=== PATIENT | female | born 1945 | race Native Hawaiian/Other Pacific Islander ===

== ENCOUNTER 2016-11-21 13:25 | Emergency (ER) | payer OTHER ==
[~2016-11-21] VITALS: Ht 172.7 cm; Wt 110.2 kg
[~2016-11-21 13:25] MED LIST: ACET7.5T70 PO; ACID CONTROL150 MG PO; ALBUTEROL0.083 % IN; AMITRIPTYLIN50 MG PO; AMLO5TAB PO; ARICEPT ODT10 MG PO; CLON0.5T36 PO; ESCITALOPRAM20 MG PO; FURO40TA93 PO; HYDR25CA25 PO; KLOR-CON M2020 MEQ PO; LAMICTAL25 MG PO; LAMOTRIGINE25 MG PO; LEVO0.08 PO; LISI20TA11 PO; MELOXICAM15 MG PO; METF500T PO; RISP1TAB PO; TRAM50TA PO
[2016-11-21 13:42] VITALS: BP 128/68; TEMP 98.2
== END 2016-11-21 15:24 | disposition home or self-care (01) ==
LOC: ED 13:25
DX: S52.591A Other fractures of lower end of right radius, initial encounter for closed fracture (principal); S52.614A Nondisplaced fracture of right ulna styloid process, initial encounter for closed fracture; S72.091A Other fracture of head and neck of right femur, initial encounter for closed fracture; W01.0XXA Fall on same level from slipping, tripping and stumbling without subsequent striking against object, initial encounter; Y92.098 Other place in other non-institutional residence as the place of occurrence of the external cause
CPT/HCPCS: 99283; L3908

== ENCOUNTER 2016-12-01 13:02 | Outpatient (CLI) | payer OTHER | END 2016-12-02 02:01 | disposition home or self-care (01) | LOC: RAD 13:02 | DX: M25.531 Pain in right wrist (principal) ==

== ENCOUNTER 2016-12-29 13:22 | Outpatient (CLI) | payer OTHER | END 2016-12-29 19:29 | disposition home or self-care (01) | LOC: RAD 13:22 | DX: S52.511D Displaced fracture of right radial styloid process, subsequent encounter for closed fracture with routine healing (principal) ==

== ENCOUNTER 2017-06-29 15:46 | Outpatient (CLI) | payer OTHER | END 2017-06-29 19:07 | disposition home or self-care (01) | LOC: LAB 15:46 | DX: R19.7 Diarrhea, unspecified (principal) | CPT/HCPCS: 87015; 87045; 87899 ==

== ENCOUNTER 2017-07-06 23:20 | Outpatient (CLI) | payer OTHER | END 2017-07-06 23:59 | disposition home or self-care (01) | LOC: LAB 23:20 | DX: R19.7 Diarrhea, unspecified (principal) | CPT/HCPCS: 87205; 87324; 87328; 87329; 87449 ==

== ENCOUNTER 2017-07-24 17:09 | Outpatient (CLI) | payer OTHER ==
[2017-07-24] MEDS ORDERED: LEVO-T100 MCG PO (22:44)
[2017-07-24] MEDS ORDERED: METFORMIN HCL500 M1 PO (22:46)
[2017-07-24] MEDS ORDERED: IMODIUM A-D2 MG PO (22:49)
[2017-07-24] MEDS ORDERED: PROTONIX20 MG PO (22:50)
[2017-07-24] MEDS ORDERED: OXYB5TAB56 PO (22:50)
[2017-07-24] MEDS ORDERED: EPIPEN 2-PAK0.3 MG IJ (22:51)
[2017-07-24] MEDS ORDERED: ASPIRIN 8181 MG PO (22:51)
== END 2017-07-24 17:17 | disposition short-term general hospital (02) ==
LOC: AMB 17:09
DX: I95.89 Other hypotension (principal); R53.1 Weakness
CPT/HCPCS: A0425; A0427

== ENCOUNTER 2017-07-24 17:20 | Inpatient (IN) | payer OTHER ==
[~2017-07-24] VITALS: Ht 172.7 cm; Wt 103.7 kg
[2017-07-24 17:25] VITALS: BP 78/36; TEMP 95.3
[2017-07-24 17:56] LABS: PLATELET COUNT 167 K/uL (152-353)
[2017-07-24 17:57] LABS: POTASSIUM 5.2 mmol/L (3.6-5.2)
[2017-07-24 18:00] VITALS: BP 92/39
[2017-07-24 18:20] VITALS: BP 97/49; TEMP 96.5
[2017-07-24] MEDS ORDERED: LEVO-T100 MCG PO (22:44)
[2017-07-24] MEDS ORDERED: METFORMIN HCL500 M1 PO (22:46)
[2017-07-24] MEDS ORDERED: IMODIUM A-D2 MG PO (22:49)
[2017-07-24] MEDS ORDERED: OXYB5TAB56 PO (22:50)
[2017-07-24] MEDS ORDERED: PROTONIX20 MG PO (22:50)
[2017-07-24] MEDS ORDERED: EPIPEN 2-PAK0.3 MG IJ (22:51)
[2017-07-24] MEDS ORDERED: ASPIRIN 8181 MG PO (22:51)
[2017-07-25] VITALS (7 sets, daily range): BP systolic 96–117; BP diastolic 39–48; TEMP 97.4–98.7; Ht 172.7 cm; Wt 103.7 kg
--- NOTE | 2017-07-25 02:58 | NUR ---
07/24/17 2210 PT TO ROOM 1109 DX UTI HYPOTENSION,DEHYDRATION,ACUTE RENAL INSUFFICENCY.PT ORIENTED TO ROOM CALL LIGHT WITHIN REACH.VITAL SIGNS OBTAINED.CC 07/24/17 2320 ER KELI NOTIFIED OF PT BLOOD SUGAR 91 ORDERED TO CALL IF LESS THAN 100.RECEIVED ORDER TO GIVE PT A DIET TO SEE IF SHE WILL EAT ANYTHING.CC 07/24/[address] MORE NOTIFIED OF BLOOD SUGAR IS 96 AFTER EATING SOME COOKIES AND MILK.NEW ORDER RECEIVED TO CHANGE IV FLUIDS TO D51/2NS AT 125.CONTINUE TO MONITOR BLOOD SUGAR.CC
[2017-07-25 06:18] LABS: POTASSIUM 5.1 mmol/L (3.6-5.2)
[2017-07-25 07:47] LABS: PLATELET COUNT 130 K/uL (152-353)
[2017-07-26] VITALS: BP 116/51; TEMP 98.6
[2017-07-26 04:00] VITALS: BP 122/56; TEMP 98.4
[2017-07-26 05:02] LABS: PLATELET COUNT 132 K/uL (152-353)
[2017-07-26 05:18] LABS: POTASSIUM 4.9 mmol/L (3.6-5.2)
[2017-07-26 08:08] VITALS: BP 125/58; TEMP 97.8
[2017-07-26 12:00] VITALS: BP 119/45; TEMP 98.5
[2017-07-26 16:00] VITALS: BP 108/46; TEMP 98.5
[2017-07-26 20:00] VITALS: BP 109/44; TEMP 98
--- NOTE | 2017-07-26 20:19 | NUR ---
07/26/17 190 FIRST UNIT BLOOD TRANSFUSION COMPLETED TOLERATED WELL FAMILY PRESENT AT BEDSIDE.CC 07/26/171954 SECOND UNIT PRBC'S STARTED WITHOUT DIFFICULTY.CC 07/26/172009 INCREASE INFUSION RATE TO 125ML .CC
--- NOTE | 2017-07-26 20:21 | NUR ---
07/26/17 2015 BLOOD SUGR 111.CC
--- NOTE | 2017-07-26 22:59 | NUR ---
07/26/17 2240 PT BLOOD INFUSION COMPLETED TOLERATED WELL.CC
[2017-07-27] VITALS: BP 111/49; TEMP 98.2
--- NOTE | 2017-07-27 00:18 | NUR ---
07/26/[address] ROSE NOTIFED OF HGB AND HCT AFTER SECOND UNIT OF PRBC'S INFUSED 9.5.CONTINUE WITH THE OTHER 2 UNITS OF PRBC'S ORDERED.CC 07/27/17 0010 THIRD UNIT BLOOD INFUSION STARTED WITHOUT DIFFICULTY NAD NOTED.CC
[2017-07-27 04:00] VITALS: BP 122/52; TEMP 97.8
--- NOTE | 2017-07-27 06:44 | NUR ---
07/27/17 0630 BLOOD INFUSION COMPLETED NO REACTION NOTED.CC
[2017-07-27 08:00] VITALS: BP 118/50; TEMP 98.2
--- NOTE | 2017-07-27 10:00 | NUR ---
ANAI TALLEY APPLIED TO PT AT THIS TIME.
[2017-07-27 12:00] VITALS: BP 123/52; TEMP 97.8
[2017-07-27 13:18] LABS: PLATELET COUNT 118 K/uL (152-353)
[2017-07-27 13:32] LABS: POTASSIUM 4.7 mmol/L (3.6-5.2)
--- NOTE | 2017-07-27 14:45 | NUR ---
BED BATH GIVEN. PT ABLE TO HELP WASH OFF. PT TOLERATED WELL. NO PROBLEMS NOTED.
[2017-07-27 16:00] VITALS: BP 129/45; TEMP 98
[2017-07-27 20:06] VITALS: BP 107/43; TEMP 98
[2017-07-28] VITALS: BP 108/50; TEMP 98.1
[2017-07-28 04:00] VITALS: BP 112/52; TEMP 98
[2017-07-28 05:08] LABS: POTASSIUM 4.5 mmol/L (3.6-5.2)
[2017-07-28 05:40] LABS: PLATELET COUNT 108 K/uL (152-353)
[2017-07-28 08:00] VITALS: BP 116/56; TEMP 98.6
--- NOTE | 2017-07-28 09:45 | NUR ---
HOSPITALIST STATES PT MAY BE ABLE TO GO HOME TODAY DEPENDING ON HOW WELL PT TOLERATES GETTING UP AND WALKING. PHYSICAL THERAPY HERE AT THIS TIME TO WORK WITH PT. NO PROBLEMS NOTED.
--- NOTE | 2017-07-28 11:15 | NUR ---
ARNULFO FORM PT STATED THAT PT AMBULATED DOWN CLARK AND BACK TWICE. PT TOLERATED OK BUT GOT A LITTLE SOB. HOSPITALIST NOTIFIED.
--- NOTE | 2017-07-28 11:26 | NUR ---
BLADDER TRAINING IN PROGRESS SO PT CAN BE D/C'D LATER TODAY.
[2017-07-28 12:00] VITALS: BP 118/44; TEMP 98.1
--- NOTE | 2017-07-28 16:19 | NUR ---
IV D/C'D. MONAHAN D/C'D. DISCHARGE INSTRUCTIONS GIVEN. PT BEING WHEELED OUT BY FAMILY AND NURSE AT THIS TIME. PT HAS NO QUESTIONS. NO PROBLEMS NOTED.
== END 2017-07-28 18:05 | disposition home or self-care (01) | DRG 690 ==
LOC: ED 17:20 → MED/SURG 20:10
PROVIDERS: ADMIT Emergency Medicine
PROC: 30233N1 Transfusion of Nonautologous Red Blood Cells into Peripheral Vein, Percutaneous Approach (ICD-10-PCS; principal; 2017-07-26)
PROC: 30233N1 Transfusion of Nonautologous Red Blood Cells into Peripheral Vein, Percutaneous Approach (ICD-10-PCS; 2017-07-27)
DX: N39.0 Urinary tract infection, site not specified (principal); N18.4 Chronic kidney disease, stage 4 (severe); G40.802 Other epilepsy, not intractable, without status epilepticus; B96.1 Klebsiella pneumoniae [K. pneumoniae] as the cause of diseases classified elsewhere; I95.89 Other hypotension; D64.89 Other specified anemias; E03.8 Other specified hypothyroidism; D69.6 Thrombocytopenia, unspecified; E88.09 Other disorders of plasma-protein metabolism, not elsewhere classified; E86.0 Dehydration; I12.9 Hypertensive chronic kidney disease with stage 1 through stage 4 chronic kidney disease, or unspecified chronic kidney disease
CPT/HCPCS: 36415; 36430; 80053; 81000; 82150; 82272; 82948; 83690; 83880; 85014; 85018; 85027; 85379; 86850; 86900; 86901; 86922; 87077; 87086; 87088; 87186; 93005; 96360; 96361; 99284; J1940; P9016

== ENCOUNTER 2017-08-16 18:27 | Outpatient (CLI) | payer OTHER ==
[~2017-08-16 18:27] MED LIST changes: +ASPIRIN 8181 MG PO; +EPIPEN 2-PAK0.3 MG IJ; +IMODIUM A-D2 MG PO; +LEVO-T100 MCG PO; +METFORMIN HCL500 M1 PO; +OXYB5TAB56 PO; +PROTONIX20 MG PO
== END 2017-08-16 18:31 | disposition short-term general hospital (02) ==
LOC: AMB 18:27
DX: R06.09 Other forms of dyspnea (principal); R51 Headache; R42 Dizziness and giddiness; R53.1 Weakness
CPT/HCPCS: A0425; A0427

== ENCOUNTER 2017-09-30 11:20 | Day surgery (SDC) | payer OTHER ==
[2017-09-30 11:58] LABS: PLATELET COUNT 146 K/uL (152-353)
[2017-09-30 12:04] LABS: POTASSIUM 4.9 mmol/L (3.6-5.2)
== END 2017-09-30 14:40 | disposition home or self-care (01) ==
LOC: OR 11:20
PROVIDERS: Internal Medicine Gastroenterology
PROC: 0DBE8ZZ Excision of Large Intestine, Via Natural or Artificial Opening Endoscopic (ICD-10-PCS; principal; 2017-09-30)
DX: K64.8 Other hemorrhoids (principal); R19.4 Change in bowel habit; R19.7 Diarrhea, unspecified; R10.30 Lower abdominal pain, unspecified
CPT/HCPCS: 80053; 85027; J2001; J2704; J3010; J3490

== ENCOUNTER 2018-10-08 11:49 | Outpatient (CLI) | payer OTHER ==
[2018-10-08 12:11] LABS: PLATELET COUNT 131 K/uL (152-353)
[2018-10-08 13:02] LABS: POTASSIUM 6.3 mmol/L (3.6-5.2)
== END 2018-10-08 23:24 | disposition home or self-care (01) ==
LOC: LABW 11:49
PROVIDERS: Family Medicine
DX: E11.9 Type 2 diabetes mellitus without complications (principal); I10 Essential (primary) hypertension; I63.9 Cerebral infarction, unspecified; M19.90 Unspecified osteoarthritis, unspecified site; E55.9 Vitamin D deficiency, unspecified; R32 Unspecified urinary incontinence
CPT/HCPCS: 36415; 80053; 80061; 82306; 83036; 83735; 84439; 84443; 84550; 85027

== ENCOUNTER 2018-10-08 12:17 | Emergency (ER) | payer OTHER ==
[~2018-10-08] VITALS: Ht 172.7 cm; Wt 113.4 kg
[2018-10-08 14:27] VITALS: BP 112/68; TEMP 98
== END 2018-10-08 14:30 | disposition home or self-care (01) ==
LOC: ED 12:17
DX: N39.0 Urinary tract infection, site not specified (principal)
CPT/HCPCS: 81000; 87077; 87086; 87088; 87186; 99282

== ENCOUNTER 2018-11-08 08:22 | Outpatient (CLI) | payer OTHER ==
[2018-11-08 08:51] LABS: PLATELET COUNT 150 K/uL (152-353)
[2018-11-08 09:24] LABS: POTASSIUM 4.3 mmol/L (3.6-5.2)
== END 2018-11-08 20:47 | disposition home or self-care (01) ==
LOC: LABW 08:22
PROVIDERS: Family Medicine
DX: R32 Unspecified urinary incontinence (principal); N18.4 Chronic kidney disease, stage 4 (severe); D64.9 Anemia, unspecified; K21.9 Gastro-esophageal reflux disease without esophagitis
CPT/HCPCS: 36415; 80053; 82607; 82728; 82746; 83540; 83550; 83735; 84550; 85027

== ENCOUNTER 2018-12-10 10:39 | Outpatient (CLI) | payer OTHER ==
[2018-12-10 11:36] LABS: POTASSIUM 4.5 mmol/L (3.6-5.2)
== END 2018-12-10 19:12 | disposition home or self-care (01) ==
LOC: LAB 10:39
PROVIDERS: Family Medicine
DX: N18.4 Chronic kidney disease, stage 4 (severe) (principal); K21.9 Gastro-esophageal reflux disease without esophagitis; R82.998 Other abnormal findings in urine
CPT/HCPCS: 80053; 81000; 83735; 87077; 87086; 87088; 87186

== ENCOUNTER 2018-12-14 17:51 | Inpatient (IN) | payer OTHER ==
[~2018-12-14] VITALS: Ht 172.7 cm; Wt 115.9 kg
[2018-12-14 18:39] VITALS: BP 187/50; TEMP 98.4; Ht 172.7 cm; Wt 115.9 kg
[2018-12-14 18:46] LABS: PLATELET COUNT 170 K/uL (152-353)
[2018-12-14 19:05] LABS: POTASSIUM 5.1 mmol/L (3.6-5.2)
[2018-12-14 20:10] VITALS: BP 141/66; TEMP 98.2
[2018-12-15 00:12] VITALS: BP 135/58; TEMP 98.3
[2018-12-15 04:00] VITALS: BP 143/61; TEMP 97.7
[2018-12-15 08:00] VITALS: BP 141/52; TEMP 97.3
[2018-12-15 09:41] LABS: PLATELET COUNT 133 K/uL (152-353)
[2018-12-15 10:07] LABS: POTASSIUM 3.8 mmol/L (3.6-5.2); SODIUM 136 mmol/L (136-145)
[2018-12-15 12:00] VITALS: BP 138/62; TEMP 97.6
[2018-12-15 16:00] VITALS: BP 129/51; TEMP 97.6
[2018-12-15 20:00] VITALS: BP 139/52; TEMP 98.2
[2018-12-16] VITALS: BP 127/50; TEMP 97.9
[2018-12-16 04:00] VITALS: BP 133/50; TEMP 98.6
[2018-12-16 08:00] VITALS: BP 132/54; TEMP 97.8
[2018-12-16 12:00] VITALS: BP 144/46; TEMP 98.1
[2018-12-16 16:00] VITALS: BP 142/56; TEMP 97.7
[2018-12-16 17:00] LABS: POTASSIUM 4.3 mmol/L (3.6-5.2)
[2018-12-16 20:00] VITALS: BP 140/60; TEMP 97.6
[2018-12-17] VITALS: BP 117/52; TEMP 98.3
[2018-12-17 04:00] VITALS: BP 134/54; TEMP 97.9
[2018-12-17 08:11] VITALS: BP 129/63; TEMP 98.1
[2018-12-17 12:16] VITALS: BP 141/50; TEMP 97.7
[2018-12-17 16:08] VITALS: BP 148/57; TEMP 97.8
[2018-12-17 20:08] VITALS: BP 149/60; TEMP 98
[2018-12-18 00:11] VITALS: BP 136/58; TEMP 97.7
[2018-12-18 04:00] VITALS: BP 152/58; TEMP 97.5
[2018-12-18 05:36] LABS: PLATELET COUNT 112 K/uL (152-353)
[2018-12-18 08:06] VITALS: BP 148/53; TEMP 97.6
[2018-12-18 12:12] VITALS: BP 134/57; TEMP 97.5
[2018-12-18 16:05] VITALS: BP 141/50; TEMP 97.5
[2018-12-18 20:08] VITALS: BP 132/59; TEMP 97.4
[2018-12-19] VITALS: BP 119/49; TEMP 98.4
[2018-12-19 04:00] VITALS: BP 120/46; TEMP 97.7
[2018-12-19 06:26] LABS: PLATELET COUNT 128 K/uL (152-353)
[2018-12-19 08:00] VITALS: BP 117/47; TEMP 97.9
[2018-12-19 12:00] VITALS: BP 117/47; BP 123/60; TEMP 97.9; TEMP 98.6
[2018-12-19 16:00] VITALS: BP 114/75; TEMP 97.5
[2018-12-19 20:00] VITALS: BP 118/53; TEMP 97.6
[2018-12-20] VITALS: BP 115/42; TEMP 98.3
[2018-12-20 04:00] VITALS: BP 114/42; TEMP 97.9
[2018-12-20 08:00] VITALS: BP 108/52; TEMP 97.4
== END 2018-12-20 11:25 | disposition home or self-care (01) | DRG 690 ==
LOC: MED/SURG 17:51
PROVIDERS: ADMIT Family Medicine
DX: N39.0 Urinary tract infection, site not specified (principal); I13.0 Hypertensive heart and chronic kidney disease with heart failure and stage 1 through stage 4 chronic kidney disease, or unspecified chronic kidney disease; N18.4 Chronic kidney disease, stage 4 (severe); G40.802 Other epilepsy, not intractable, without status epilepticus; E11.22 Type 2 diabetes mellitus with diabetic chronic kidney disease; I50.89 Other heart failure; D64.89 Other specified anemias; I48.91 Unspecified atrial fibrillation; Z86.73 Personal history of transient ischemic attack (TIA), and cerebral infarction without residual deficits; E86.0 Dehydration; B96.1 Klebsiella pneumoniae [K. pneumoniae] as the cause of diseases classified elsewhere
CPT/HCPCS: 36415; 80048; 80053; 81000; 82550; 82728; 83540; 83550; 83735; 83880; 84100; 84484; 85027; 87040; 87077; 87086; 87088; 87186; 93005; J1956; J0696; J1650; J1940; J2550; J3490

== ENCOUNTER 2019-01-07 11:38 | Outpatient (CLI) | payer OTHER | END 2019-01-07 20:09 | disposition home or self-care (01) | LOC: LAB 11:38 | DX: Z16.12 Extended spectrum beta lactamase (ESBL) resistance (principal); N39.0 Urinary tract infection, site not specified; B96.1 Klebsiella pneumoniae [K. pneumoniae] as the cause of diseases classified elsewhere | CPT/HCPCS: 81000; 87077; 87086; 87088; 87186 ==

== ENCOUNTER 2019-01-14 10:28 | Outpatient (CLI) | payer OTHER ==
[2019-01-14 10:48] LABS: POTASSIUM 4.5 mmol/L (3.6-5.2)
== END 2019-01-14 19:45 | disposition home or self-care (01) ==
LOC: LAB 10:28
PROVIDERS: Family Medicine
DX: Z79.899 Other long term (current) drug therapy (principal)
CPT/HCPCS: 80053

== ENCOUNTER 2019-01-24 14:13 | Emergency (ER) | payer OTHER ==
[~2019-01-24] VITALS: Ht 172.7 cm; Wt 117.9 kg
[2019-01-24 14:39] LABS: PLATELET COUNT 131 K/uL (152-353)
[2019-01-24 15:02] LABS: POTASSIUM 5.1 mmol/L (3.6-5.2)
[2019-01-24 16:50] VITALS: BP 147/58; TEMP 97.1
== END 2019-01-24 16:50 | disposition home or self-care (01) ==
LOC: ED 14:13
PROVIDERS: Emergency Medicine
DX: N39.0 Urinary tract infection, site not specified (principal); R00.1 Bradycardia, unspecified
CPT/HCPCS: 80053; 81000; 83735; 85027; 87077; 87086; 87088; 87186; 93005; 96365; 99283; J0696

== ENCOUNTER 2019-02-07 09:56 | Outpatient (CLI) | payer OTHER | END 2019-02-07 20:21 | disposition home or self-care (01) | LOC: LAB 09:56 | DX: N39.0 Urinary tract infection, site not specified (principal); Z16.12 Extended spectrum beta lactamase (ESBL) resistance | CPT/HCPCS: 81000 ==

== ENCOUNTER 2019-02-17 10:53 | Outpatient (CLI) | payer OTHER | END 2019-02-17 19:14 | disposition home or self-care (01) | LOC: LAB 10:53 | DX: N39.0 Urinary tract infection, site not specified (principal) | CPT/HCPCS: 81000; 87077; 87086; 87088; 87186 ==

== ENCOUNTER 2019-02-21 11:29 | Inpatient (IN) | payer OTHER ==
[~2019-02-21] VITALS: Ht 172.7 cm; Wt 117.5 kg
[2019-02-21 12:25] VITALS: BP 150/60; TEMP 97.6; Ht 172.7 cm; Wt 117.5 kg
[2019-02-21 12:44] LABS: PLATELET COUNT 139 K/uL (152-353)
[2019-02-21 12:57] LABS: POTASSIUM 4.5 mmol/L (3.6-5.2)
[2019-02-21 16:00] VITALS: BP 161/61; TEMP 97.7
[2019-02-21] MEDS ORDERED: DICLOFENAC SODIUM1 % TD (16:32)
[2019-02-21] MEDS ORDERED: CLON0.5T36 PO (16:36)
[2019-02-21] MEDS ORDERED: HYDR5TAB9 PO (16:37)
[2019-02-21] MEDS ORDERED: DOCU100C10 PO (16:38)
[2019-02-21] MEDS ORDERED: CLEARLAX PO (16:40)
[2019-02-21 20:00] VITALS: BP 136/587; TEMP 97.7
[2019-02-21 23:53] VITALS: BP 115/57; TEMP 98
[2019-02-22 04:00] VITALS: BP 123/48; TEMP 98.1
[2019-02-22 08:00] VITALS: BP 142/49; TEMP 97.7
[2019-02-22 12:00] VITALS: BP 142/55; TEMP 97.9
[2019-02-22 16:00] VITALS: BP 132/56; TEMP 97.3
[2019-02-22 20:00] VITALS: BP 127/64; TEMP 97.9
[2019-02-23 00:24] VITALS: BP 118/45; TEMP 98.1
[2019-02-23 04:00] VITALS: BP 127/47; TEMP 98
[2019-02-23 05:45] LABS: PLATELET COUNT 126 K/uL (152-353)
[2019-02-23 06:00] LABS: POTASSIUM 4.3 mmol/L (3.6-5.2)
[2019-02-23 08:00] VITALS: BP 146/51; TEMP 97.6
[2019-02-23 12:00] VITALS: BP 139/52; TEMP 97.5
[2019-02-23 16:00] VITALS: BP 149/98; TEMP 97.8
[2019-02-23 20:00] VITALS: BP 121/40; TEMP 97.5
[2019-02-24] VITALS: BP 109/49; TEMP 97.9
[2019-02-24 04:00] VITALS: BP 115/45; TEMP 97.6
[2019-02-24 08:00] VITALS: BP 128/64; TEMP 97.5
== END 2019-02-24 12:00 | disposition home or self-care (01) | DRG 690 ==
LOC: MED/SURG 11:29
PROVIDERS: ADMIT Family Medicine
DX: N39.0 Urinary tract infection, site not specified (principal); I69.354 Hemiplegia and hemiparesis following cerebral infarction affecting left non-dominant side; G40.802 Other epilepsy, not intractable, without status epilepticus; N18.4 Chronic kidney disease, stage 4 (severe); B96.1 Klebsiella pneumoniae [K. pneumoniae] as the cause of diseases classified elsewhere; B96.20 Unspecified Escherichia coli [E. coli] as the cause of diseases classified elsewhere; R62.7 Adult failure to thrive; R53.1 Weakness; I48.91 Unspecified atrial fibrillation; M15.8 Other polyosteoarthritis; I12.9 Hypertensive chronic kidney disease with stage 1 through stage 4 chronic kidney disease, or unspecified chronic kidney disease; E11.22 Type 2 diabetes mellitus with diabetic chronic kidney disease; L89.899 Pressure ulcer of other site, unspecified stage
CPT/HCPCS: 36415; 80053; 84439; 84443; 84481; 85027; 87040; 87077; 87185; 87205; J1956; J1650; J3490

== ENCOUNTER 2019-03-11 10:47 | Outpatient (CLI) | payer OTHER ==
[~2019-03-11 10:47] MED LIST changes: +CLEARLAX PO; +DICLOFENAC SODIUM1 % TD; +DOCU100C10 PO; +HYDR5TAB9 PO
== END 2019-03-11 21:40 | disposition home or self-care (01) ==
LOC: LAB 10:47
DX: N39.0 Urinary tract infection, site not specified (principal)
CPT/HCPCS: 81000

== ENCOUNTER 2019-03-17 09:46 | Outpatient (CLI) | payer OTHER ==
[2019-03-17 10:39] LABS: POTASSIUM 4.8 mmol/L (3.6-5.2)
[2019-03-17 10:49] LABS: PLATELET COUNT 129 K/uL (152-353)
== END 2019-03-17 19:41 | disposition home or self-care (01) ==
LOC: LAB 09:46
PROVIDERS: Family Medicine
DX: E11.9 Type 2 diabetes mellitus without complications (principal); N18.4 Chronic kidney disease, stage 4 (severe); K21.9 Gastro-esophageal reflux disease without esophagitis; D64.89 Other specified anemias; R79.89 Other specified abnormal findings of blood chemistry; E03.8 Other specified hypothyroidism
CPT/HCPCS: 80053; 80061; 81000; 82306; 82607; 82746; 83036; 83735; 84439; 84443; 84550; 85027

== ENCOUNTER 2019-03-23 12:59 | Outpatient (CLI) | payer OTHER | END 2019-03-23 23:40 | disposition home or self-care (01) | LOC: LAB 12:59 | DX: N39.0 Urinary tract infection, site not specified (principal) | CPT/HCPCS: 81000; 87077; 87086; 87088; 87186 ==

== ENCOUNTER 2019-04-27 11:00 | Outpatient (CLI) | payer OTHER ==
[2019-04-27 11:24] LABS: PLATELET COUNT 121 K/uL (152-353)
[2019-04-27 11:40] LABS: POTASSIUM 3.5 mmol/L (3.6-5.2)
== END 2019-04-27 23:46 | disposition home or self-care (01) ==
LOC: LAB 11:00
PROVIDERS: Internal Medicine
DX: N18.4 Chronic kidney disease, stage 4 (severe) (principal); E03.9 Hypothyroidism, unspecified; D64.9 Anemia, unspecified; Z79.899 Other long term (current) drug therapy
CPT/HCPCS: 80053; 81000; 82306; 82330; 82570; 82728; 83036; 83540; 83550; 83735; 84100; 84155; 85027; 87077; 87086; 87088; 87186

== ENCOUNTER 2019-06-13 11:36 | Outpatient (CLI) | payer OTHER | END 2019-06-13 22:39 | disposition home or self-care (01) | LOC: LAB 11:36 | DX: R31.9 Hematuria, unspecified (principal) | CPT/HCPCS: 81000; 87077; 87086; 87088; 87186 ==

== ENCOUNTER 2019-06-28 17:21 | Emergency (ER) | payer OTHER | END 2019-06-28 19:05 | disposition home or self-care (01) | LOC: ED 17:21 | PROC: 0T9B70Z Drainage of Bladder with Drainage Device, Via Natural or Artificial Opening (ICD-10-PCS; principal; 2019-06-28) | DX: R32 Unspecified urinary incontinence (principal); Y84.6 Urinary catheterization as the cause of abnormal reaction of the patient, or of later complication, without mention of misadventure at the time of the procedure | CPT/HCPCS: 51702; 99282 ==

== ENCOUNTER 2019-08-11 12:44 | Inpatient (IN) | payer OTHER ==
[~2019-08-11] VITALS: Ht 172.7 cm; Wt 122.7 kg
[2019-08-11 13:49] VITALS: BP 145/63; TEMP 97.5; Ht 172.7 cm; Wt 122.7 kg
[2019-08-11] MEDS ORDERED: DONE5TAB PO (14:12)
[2019-08-11] MEDS ORDERED: PROTONIX20 MG PO (14:14)
[2019-08-11] MEDS ORDERED: ASPIR-LOW81 MG PO (14:15)
[2019-08-11] MEDS ORDERED: RISP1TAB PO (14:16)
[2019-08-11] MEDS ORDERED: RANI150T78 PO (14:17)
[2019-08-11] MEDS ORDERED: LAMOTRIGINE ER25 MG PO (14:18)
[2019-08-11] MEDS ORDERED: ESCITALOPRAM20 MG PO (14:18)
[2019-08-11] MEDS ORDERED: PROMETHAZINE HY25 MG PO (14:21)
[2019-08-11] MEDS ORDERED: D32000 UNIT PO (14:22)
[2019-08-11 16:00] VITALS: BP 159/65; TEMP 97.6
[2019-08-11 16:02] LABS: PLATELET COUNT 129 K/uL (152-353)
[2019-08-11 16:23] LABS: POTASSIUM 4.6 mmol/L (3.6-5.2)
[2019-08-11 20:00] VITALS: BP 136/49; TEMP 97.9
[2019-08-12] VITALS: BP 132/54; TEMP 97.6
[2019-08-12 04:00] VITALS: BP 143/52; TEMP 98.7
[2019-08-12 04:35] LABS: PLATELET COUNT 132 K/uL (152-353)
[2019-08-12 04:48] LABS: POTASSIUM 4.1 mmol/L (3.6-5.2)
[2019-08-12 08:00] VITALS: BP 156/60; TEMP 97.8
[2019-08-12 12:00] VITALS: BP 133/55; TEMP 97.5
[2019-08-12 16:00] VITALS: BP 142/64; TEMP 98.6
[2019-08-12 20:00] VITALS: BP 144/48; TEMP 97.7
[2019-08-13] VITALS: BP 125/58; TEMP 98.4
[2019-08-13 04:00] VITALS: BP 127/71; TEMP 98.5
[2019-08-13 08:00] VITALS: BP 152/59; TEMP 98
[2019-08-13 12:00] VITALS: BP 125/47; TEMP 97.8
[2019-08-13 16:00] VITALS: BP 123/56; BP 137/63; TEMP 97.5; TEMP 98.6
[2019-08-13 20:00] VITALS: BP 131/60; TEMP 97.3
[2019-08-14] VITALS (7 sets, daily range): BP systolic 109–135; BP diastolic 30–58; TEMP 97.6–99
[2019-08-14 05:52] LABS: PLATELET COUNT 129 K/uL (152-353)
[2019-08-14 05:59] LABS: POTASSIUM 4.1 mmol/L (3.6-5.2)
[2019-08-15 04:00] VITALS: BP 141/57; TEMP 98.1
[2019-08-15 05:52] LABS: POTASSIUM 4.2 mmol/L (3.6-5.2)
[2019-08-15 08:00] VITALS: BP 136/58; TEMP 97.5
[2019-08-15 12:00] VITALS: BP 125/57; TEMP 97.5
[2019-08-15 16:00] VITALS: BP 120/59; TEMP 97.7
[2019-08-15 20:00] VITALS: BP 122/69; TEMP 97.8
[2019-08-16] VITALS (7 sets, daily range): BP systolic 106–139; BP diastolic 51–65; TEMP 97.4–98.7
[2019-08-16 05:58] LABS: PLATELET COUNT 127 K/uL (152-353)
[2019-08-16 06:06] LABS: POTASSIUM 3.9 mmol/L (3.6-5.2)
[2019-08-17 04:00] VITALS: BP 143/74; TEMP 98.4
[2019-08-17 08:00] VITALS: BP 113/52; TEMP 97.9
[2019-08-17 12:00] VITALS: BP 141/91; TEMP 97.7
[2019-08-17 16:00] VITALS: BP 124/59; TEMP 97.6
[2019-08-17 20:00] VITALS: BP 126/50; TEMP 97.7
[2019-08-18] VITALS: BP 133/53; TEMP 97.5
[2019-08-18 04:00] VITALS: BP 135/64; TEMP 97.7
[2019-08-18 08:00] VITALS: BP 137/60; TEMP 97.8
[2019-08-18 12:00] VITALS: BP 120/53; TEMP 97.6
== END 2019-08-18 14:25 | DRG 291 ==
LOC: MED/SURG 12:44
PROVIDERS: Internal Medicine; ADMIT Family Medicine
DX: I13.0 Hypertensive heart and chronic kidney disease with heart failure and stage 1 through stage 4 chronic kidney disease, or unspecified chronic kidney disease (principal); I33.9 Acute and subacute endocarditis, unspecified; N18.4 Chronic kidney disease, stage 4 (severe); N39.0 Urinary tract infection, site not specified; G40.802 Other epilepsy, not intractable, without status epilepticus; D61.818 Other pancytopenia; E11.22 Type 2 diabetes mellitus with diabetic chronic kidney disease; D64.89 Other specified anemias; B96.20 Unspecified Escherichia coli [E. coli] as the cause of diseases classified elsewhere; I48.91 Unspecified atrial fibrillation; Z86.73 Personal history of transient ischemic attack (TIA), and cerebral infarction without residual deficits; N30.10 Interstitial cystitis (chronic) without hematuria; E66.01 Morbid (severe) obesity due to excess calories; R53.1 Weakness
CPT/HCPCS: 36415; 80048; 80053; 81000; 83880; 84439; 84443; 85027; 87077; 87086; 87088; 87186; J1956; J1650; J1940

== ENCOUNTER 2019-10-26 10:27 | Inpatient (IN) | payer OTHER ==
[~2019-10-26 10:27] MED LIST changes: +ASPIR-LOW81 MG PO; +D32000 UNIT PO; +DONE5TAB PO; +LAMOTRIGINE ER25 MG PO; +PROMETHAZINE HY25 MG PO; +RANI150T78 PO
== END 2019-11-05 10:46 | disposition still patient (30) ==
LOC: PAVC 10:27
PROVIDERS: ADMIT Internal Medicine

== ENCOUNTER 2019-10-26 14:47 | Outpatient (CLI) | payer OTHER | END 2019-10-26 21:14 | disposition home or self-care (01) | LOC: LAB 14:47 | DX: E11.9 Type 2 diabetes mellitus without complications (principal); N18.4 Chronic kidney disease, stage 4 (severe); K21.9 Gastro-esophageal reflux disease without esophagitis; R11.0 Nausea; I51.7 Cardiomegaly; I50.9 Heart failure, unspecified; I12.9 Hypertensive chronic kidney disease with stage 1 through stage 4 chronic kidney disease, or unspecified chronic kidney disease | CPT/HCPCS: 87081 ==

== ENCOUNTER 2019-10-27 06:26 | Outpatient (CLI) | payer OTHER | END 2019-10-27 23:03 | disposition home or self-care (01) | LOC: LAB 06:26 | DX: I12.9 Hypertensive chronic kidney disease with stage 1 through stage 4 chronic kidney disease, or unspecified chronic kidney disease (principal); N18.4 Chronic kidney disease, stage 4 (severe); E11.9 Type 2 diabetes mellitus without complications; I50.9 Heart failure, unspecified; I11.0 Hypertensive heart disease with heart failure | CPT/HCPCS: 36415; 82306; 82542; 82607; 83735 ==

== ENCOUNTER 2019-11-05 11:18 | Inpatient (IN) | payer OTHER | END 2019-12-04 14:13 | disposition still patient (30) | LOC: PAVC 11:18 | PROVIDERS: ADMIT Internal Medicine ==

== ENCOUNTER 2019-11-25 13:51 | Outpatient (CLI) | payer OTHER | END 2019-11-25 19:46 | disposition home or self-care (01) | LOC: LAB 13:51 | DX: E87.6 Hypokalemia (principal) | CPT/HCPCS: 84132 ==

== ENCOUNTER 2019-11-28 08:55 | Outpatient (CLI) | payer OTHER | END 2019-11-28 19:51 | disposition home or self-care (01) | LOC: LAB 08:55 | DX: E87.6 Hypokalemia (principal) | CPT/HCPCS: 84132 ==

== ENCOUNTER 2019-12-04 14:19 | Inpatient (IN) | payer OTHER ==
[2019-12-26] MEDS ORDERED: FURO40TA93 PO (14:53)
[2019-12-26] MEDS ORDERED: GLIP10TA55 PO (14:56)
[2019-12-26] MEDS ORDERED: LISI20TA11 PO (14:59)
[2019-12-26] MEDS ORDERED: MELATONIN10 M2 PO (15:02)
[2019-12-26] MEDS ORDERED: LEVO0.08 PO (15:05)
[2019-12-26] MEDS ORDERED: MOBIC15 MG PO (15:07)
[2019-12-26] MEDS ORDERED: DOCU100C10 PO (15:09)
[2019-12-26] MEDS ORDERED: AURYXIA210 MG PO ×2 (15:16→15:20)
[2019-12-26] MEDS ORDERED: CARAFATE1 GM PO (15:24)
[2019-12-26] MEDS ORDERED: ALBUTEROL0.083 % INH (15:25)
[2019-12-26] MEDS ORDERED: MIRALAX3350 N1 PO (15:29)
[2019-12-26] MEDS ORDERED: TYLENOL325 MG PO (15:33)
[2019-12-26] MEDS ORDERED: ZOFRAN8 MG PO (15:38)
[2019-12-26] MEDS ORDERED: DRISDOL50000 UNIT PO (15:40)
== END 2020-01-04 11:52 | disposition still patient (30) ==
LOC: PAVC 14:19
PROVIDERS: ADMIT Internal Medicine

== ENCOUNTER 2019-12-26 12:30 | Inpatient (IN) | payer OTHER ==
[~2019-12-26] VITALS: Ht 172.7 cm; Wt 125.6 kg
[2019-12-26] VITALS (15 sets, daily range): BP systolic 75–176; BP diastolic 22–86; TEMP 97.5–98.4; Ht 172.7 cm; Wt 125.6 kg
[2019-12-26] MEDS ORDERED: FURO40TA93 PO (14:53)
[2019-12-26] MEDS ORDERED: GLIP10TA55 PO (14:56)
[2019-12-26] MEDS ORDERED: LISI20TA11 PO (14:59)
[2019-12-26] MEDS ORDERED: MELATONIN10 M2 PO (15:02)
[2019-12-26] MEDS ORDERED: LEVO0.08 PO (15:05)
[2019-12-26] MEDS ORDERED: MOBIC15 MG PO (15:07)
[2019-12-26] MEDS ORDERED: DOCU100C10 PO (15:09)
[2019-12-26] MEDS ORDERED: AURYXIA210 MG PO ×2 (15:16→15:20)
[2019-12-26 15:24] LABS: PLATELET COUNT 73 K/uL (152-353)
[2019-12-26] MEDS ORDERED: CARAFATE1 GM PO (15:24)
[2019-12-26] MEDS ORDERED: ALBUTEROL0.083 % INH (15:25)
[2019-12-26] MEDS ORDERED: MIRALAX3350 N1 PO (15:29)
[2019-12-26] MEDS ORDERED: TYLENOL325 MG PO (15:33)
[2019-12-26] MEDS ORDERED: ZOFRAN8 MG PO (15:38)
[2019-12-26] MEDS ORDERED: DRISDOL50000 UNIT PO (15:40)
[2019-12-26 15:49] LABS: POTASSIUM 3.4 mmol/L (3.6-5.2)
[2019-12-27] VITALS (12 sets, daily range): BP systolic 94–126; BP diastolic 23–57; TEMP 98–98.3
== END 2019-12-27 13:35 | DRG 871 ==
LOC: ICU 12:30
PROVIDERS: ADMIT Internal Medicine
DX: A41.89 Other specified sepsis (principal); N18.6 End stage renal disease; N39.0 Urinary tract infection, site not specified; I13.2 Hypertensive heart and chronic kidney disease with heart failure and with stage 5 chronic kidney disease, or end stage renal disease; G40.802 Other epilepsy, not intractable, without status epilepticus; I95.89 Other hypotension; G30.8 Other Alzheimer's disease; F02.80 Dementia in other diseases classified elsewhere, unspecified severity, without behavioral disturbance, psychotic disturbance, mood disturbance, and anxiety; E11.22 Type 2 diabetes mellitus with diabetic chronic kidney disease; Z99.2 Dependence on renal dialysis; E03.8 Other specified hypothyroidism; Z86.73 Personal history of transient ischemic attack (TIA), and cerebral infarction without residual deficits; F25.8 Other schizoaffective disorders; J44.9 Chronic obstructive pulmonary disease, unspecified
CPT/HCPCS: 80053; 82306; 83605; 84443; 85027; 87040; 87205; J0696

== ENCOUNTER 2019-12-28 11:43 | Outpatient (CLI) | payer OTHER ==
[~2019-12-28] VITALS: Ht 172.7 cm; Wt 122.0 kg
[2019-12-28 11:35] VITALS: BP 67/26; TEMP 97.4
[~2019-12-28 11:43] MED LIST changes: +ALBUTEROL0.083 % INH; +AURYXIA210 MG PO; +CARAFATE1 GM PO; +DRISDOL50000 UNIT PO; +GLIP10TA55 PO; +MELATONIN10 M2 PO; +MIRALAX3350 N1 PO; +MOBIC15 MG PO; +TYLENOL325 MG PO; +ZOFRAN8 MG PO
== END 2019-12-28 14:20 | disposition home or self-care (01) ==
LOC: INF 11:43
DX: R53.1 Weakness (principal)
CPT/HCPCS: 96360; J1644

== ENCOUNTER 2020-01-04 12:27 | Inpatient (IN) | payer OTHER | END 2020-02-03 11:24 | disposition still patient (30) | LOC: PAVC 12:27 | PROVIDERS: ADMIT Internal Medicine ==

== ENCOUNTER 2020-02-03 12:09 | Inpatient (IN) | payer OTHER | END 2020-03-05 11:23 | disposition still patient (30) | LOC: PAVC 12:09 | PROVIDERS: ADMIT Internal Medicine ==

== ENCOUNTER 2020-02-22 18:57 | Outpatient (CLI) | payer OTHER ==
[2020-02-22 19:34] LABS: PLATELET COUNT 78 K/uL (152-353)
== END 2020-02-22 22:24 | disposition home or self-care (01) ==
LOC: LAB 18:57
PROVIDERS: Internal Medicine
DX: R00.0 Tachycardia, unspecified (principal)
CPT/HCPCS: 36415; 85027

== ENCOUNTER 2020-02-23 11:11 | Outpatient (CLI) | payer OTHER | END 2020-02-23 22:54 | disposition home or self-care (01) | LOC: RESP 11:11 | DX: R00.0 Tachycardia, unspecified (principal) | CPT/HCPCS: 93005 ==

== ENCOUNTER 2020-03-05 11:57 | Inpatient (IN) | payer OTHER | END 2020-04-04 11:57 | disposition still patient (30) | LOC: PAVC 11:57 | PROVIDERS: ADMIT Internal Medicine | CPT/HCPCS: 87635; U0002 ==

== ENCOUNTER 2020-04-04 06:24 | Outpatient (CLI) | payer OTHER | END 2020-04-04 22:01 | disposition home or self-care (01) | LOC: LAB 06:24 | DX: I50.9 Heart failure, unspecified (principal); N18.4 Chronic kidney disease, stage 4 (severe); E11.9 Type 2 diabetes mellitus without complications; F41.8 Other specified anxiety disorders; I12.9 Hypertensive chronic kidney disease with stage 1 through stage 4 chronic kidney disease, or unspecified chronic kidney disease | CPT/HCPCS: 82306; 82542; 82607; 83036; 83735; 84443 ==

== ENCOUNTER 2020-04-04 12:18 | Inpatient (IN) | payer OTHER | END 2020-05-05 10:16 | disposition still patient (30) | LOC: PAVC 12:18 | PROVIDERS: ADMIT Internal Medicine ==

== ENCOUNTER 2020-05-05 10:41 | Inpatient (IN) | payer OTHER | END 2020-06-05 14:05 | disposition still patient (30) | LOC: PAVC 10:41 | PROVIDERS: ADMIT Internal Medicine ==

== ENCOUNTER 2020-05-29 09:30 | Outpatient (CLI) | payer OTHER | END 2020-05-29 20:18 | disposition home or self-care (01) | LOC: MAMMO 09:30 | DX: Z13.820 Encounter for screening for osteoporosis (principal); N95.8 Other specified menopausal and perimenopausal disorders ==

== ENCOUNTER 2020-06-05 14:59 | Inpatient (IN) | payer OTHER | END 2020-07-05 14:11 | disposition still patient (30) | LOC: PAVC 14:59 | PROVIDERS: ADMIT Internal Medicine | CPT/HCPCS: 83036 ==

== ENCOUNTER 2020-07-05 09:41 | Outpatient (CLI) | payer OTHER | END 2020-07-05 20:03 | disposition home or self-care (01) | LOC: LAB 09:41 | DX: E11.9 Type 2 diabetes mellitus without complications (principal) ==

== ENCOUNTER 2020-07-05 14:14 | Inpatient (IN) | payer OTHER | END 2020-08-05 08:00 | disposition still patient (30) | LOC: PAVC 14:14 | PROVIDERS: ADMIT Internal Medicine ==

== ENCOUNTER 2020-08-05 09:00 | Inpatient (IN) | payer OTHER | END 2020-09-04 12:26 | disposition still patient (30) | LOC: PAVC 09:00 | PROVIDERS: ADMIT Internal Medicine; ATTEND Internal Medicine ==

== ENCOUNTER 2020-09-04 13:01 | Inpatient (IN) | payer OTHER | END 2020-10-05 10:11 | disposition still patient (30) | LOC: PAVC 13:01 | PROVIDERS: ADMIT Internal Medicine; ATTEND Internal Medicine ==

== ENCOUNTER 2020-10-05 10:18 | Inpatient (IN) | payer OTHER | END 2020-11-05 15:32 | disposition still patient (30) | LOC: PAVC 10:18 | PROVIDERS: ADMIT Internal Medicine; ATTEND Internal Medicine ==

== ENCOUNTER 2020-10-09 09:44 | Outpatient (CLI) | payer OTHER ==
[2020-10-09 09:59] LABS: PLATELET COUNT 113 K/uL (152-353)
[2020-10-09 10:11] LABS: POTASSIUM 5.1 mmol/L (3.6-5.2)
== END 2020-10-09 22:06 | disposition home or self-care (01) ==
LOC: LAB 09:44
PROVIDERS: ATTEND Internal Medicine
DX: E11.9 Type 2 diabetes mellitus without complications (principal); N18.4 Chronic kidney disease, stage 4 (severe); F41.8 Other specified anxiety disorders; E53.8 Deficiency of other specified B group vitamins; I12.9 Hypertensive chronic kidney disease with stage 1 through stage 4 chronic kidney disease, or unspecified chronic kidney disease; I50.9 Heart failure, unspecified
CPT/HCPCS: 36415; 80053; 82306; 82542; 82607; 83036; 83735; 84443; 85027

== ENCOUNTER 2020-11-05 15:33 | Inpatient (IN) | payer OTHER | END 2020-12-03 11:19 | disposition still patient (30) | LOC: PAVC 15:33 | PROVIDERS: ADMIT Internal Medicine; ATTEND Internal Medicine ==

== ENCOUNTER 2020-11-26 10:15 | Outpatient (CLI) | payer OTHER | END 2020-11-26 19:23 | disposition home or self-care (01) | LOC: LAB 10:15 | PROVIDERS: ATTEND Internal Medicine | DX: R41.82 Altered mental status, unspecified (principal) | CPT/HCPCS: 81000; 87077; 87086; 87088; 87185; 87186 ==

== ENCOUNTER 2020-11-26 12:23 | Emergency (ER) | payer OTHER ==
[~2020-11-26] VITALS: Ht 172.7 cm; Wt 122.0 kg
[2020-11-26 12:25] VITALS: TEMP 97.7
[2020-11-26 13:06] LABS: PLATELET COUNT 119 K/uL (152-353)
[2020-11-26 13:13] LABS: POTASSIUM 5.2 mmol/L (3.6-5.2)
[2020-11-26 17:54] VITALS: BP 143/65
== END 2020-11-26 17:55 | disposition short-term general hospital (02) ==
LOC: ED 12:23
PROVIDERS: Emergency Medicine Emergency Medical Services
DX: N39.0 Urinary tract infection, site not specified (principal); N18.6 End stage renal disease; Z99.2 Dependence on renal dialysis; R07.89 Other chest pain; Z20.828 Contact with and (suspected) exposure to other viral communicable diseases; R41.82 Altered mental status, unspecified
CPT/HCPCS: 80053; 81000; 84484; 85027; 87077; 87086; 87088; 87185; 87186; 87635; 93005; 96365; 96375; 99284; J0696; J2270; U0003

== ENCOUNTER 2020-12-03 11:54 | Inpatient (IN) | payer OTHER | END 2021-01-03 12:23 | disposition still patient (30) | LOC: PAVC 11:54 | PROVIDERS: ADMIT Internal Medicine; ATTEND Internal Medicine ==

== ENCOUNTER 2020-12-26 10:27 | Outpatient (CLI) | payer OTHER | END 2020-12-26 22:00 | disposition home or self-care (01) | LOC: INF 10:27 | PROVIDERS: ATTEND Internal Medicine | DX: Z23 Encounter for immunization (principal) | CPT/HCPCS: 96372 ==

== ENCOUNTER 2021-01-03 13:57 | Inpatient (IN) | payer OTHER | END 2021-02-02 11:26 | disposition still patient (30) | LOC: PAVC 13:57 | PROVIDERS: ADMIT Internal Medicine; ATTEND Internal Medicine ==

== ENCOUNTER 2021-01-07 10:11 | Outpatient (CLI) | payer OTHER | END 2021-01-07 19:20 | disposition home or self-care (01) | LOC: LAB 10:11 | PROVIDERS: ATTEND Internal Medicine | DX: E11.9 Type 2 diabetes mellitus without complications (principal) | CPT/HCPCS: 83036 ==

== ENCOUNTER 2021-01-31 13:46 | Outpatient (CLI) | payer OTHER | END 2021-01-31 20:39 | disposition home or self-care (01) | LOC: RAD 13:46 | PROVIDERS: ATTEND Internal Medicine | DX: Z45.2 Encounter for adjustment and management of vascular access device (principal) ==

== ENCOUNTER 2021-02-02 11:52 | Inpatient (IN) | payer OTHER | END 2021-03-05 15:46 | disposition still patient (30) | LOC: PAVC 11:52 | PROVIDERS: ADMIT Internal Medicine; ATTEND Internal Medicine ==

== ENCOUNTER 2021-03-05 15:52 | Inpatient (IN) | payer OTHER | END 2021-04-04 08:00 | disposition still patient (30) | LOC: PAVC 15:52 | PROVIDERS: ADMIT Internal Medicine; ATTEND Internal Medicine ==

== ENCOUNTER 2021-04-04 09:00 | Inpatient (IN) | payer OTHER | END 2021-05-05 08:00 | disposition still patient (30) | LOC: PAVC 09:00 | PROVIDERS: ADMIT Internal Medicine; ATTEND Internal Medicine ==

== ENCOUNTER 2021-04-09 09:10 | Outpatient (CLI) | payer OTHER ==
[2021-04-09 10:33] LABS: POTASSIUM 4.7 mmol/L (3.6-5.2)
[2021-04-09 11:42] LABS: PLATELET COUNT 89 K/uL (152-353)
== END 2021-04-09 19:12 | disposition home or self-care (01) ==
LOC: LAB 09:10
PROVIDERS: ATTEND Internal Medicine
DX: I11.0 Hypertensive heart disease with heart failure (principal); I50.9 Heart failure, unspecified; N18.4 Chronic kidney disease, stage 4 (severe); E11.9 Type 2 diabetes mellitus without complications; F41.8 Other specified anxiety disorders
CPT/HCPCS: 80053; 82306; 82542; 82607; 83036; 83735; 84443; 85027

== ENCOUNTER 2021-05-05 09:00 | Inpatient (IN) | payer OTHER | END 2021-06-05 13:52 | disposition still patient (30) | LOC: PAVC 09:00 | PROVIDERS: ADMIT Internal Medicine; ATTEND Internal Medicine ==

== ENCOUNTER 2021-06-05 14:32 | Inpatient (IN) | payer OTHER | END 2021-07-05 09:40 | disposition still patient (30) | LOC: PAVC 14:32 | PROVIDERS: ADMIT Internal Medicine; ATTEND Internal Medicine ==

== ENCOUNTER 2021-07-05 07:43 | Outpatient (CLI) | payer OTHER | END 2021-07-05 18:59 | disposition home or self-care (01) | LOC: LAB 07:43 | PROVIDERS: ATTEND Internal Medicine | DX: E11.9 Type 2 diabetes mellitus without complications (principal) | CPT/HCPCS: 83036 ==

== ENCOUNTER 2021-09-04 13:01 | Inpatient (IN) | payer OTHER | END 2021-10-05 09:10 | disposition still patient (30) | LOC: PAVC 13:01 | PROVIDERS: ADMIT Internal Medicine; ATTEND Internal Medicine ==

== ENCOUNTER 2021-09-13 11:07 | Emergency (ER) | payer OTHER ==
[~2021-09-13] VITALS: Ht 172.7 cm; Wt 104.3 kg
[2021-09-13 11:07] VITALS: TEMP 97.1
[2021-09-13 15:37] VITALS: BP 140/59
== END 2021-09-13 15:37 ==
LOC: ED 11:07
DX: S09.8XXA Other specified injuries of head, initial encounter (principal); S63.591A Other specified sprain of right wrist, initial encounter; W17.89XA Other fall from one level to another, initial encounter; Y92.128 Other place in nursing home as the place of occurrence of the external cause
CPT/HCPCS: 99283

== ENCOUNTER 2021-10-05 09:42 | Inpatient (IN) | payer OTHER | END 2021-11-05 09:00 | disposition still patient (30) | LOC: PAVC 09:42 | PROVIDERS: ADMIT Internal Medicine; ATTEND Internal Medicine ==

== ENCOUNTER 2021-10-11 11:32 | Outpatient (CLI) | payer OTHER ==
[2021-10-11 11:55] LABS: PLATELET COUNT 64 K/uL (152-353)
[2021-10-11 12:15] LABS: POTASSIUM 5.8 mmol/L (3.6-5.2)
== END 2021-10-11 23:02 | disposition home or self-care (01) ==
LOC: LAB 11:32
PROVIDERS: ATTEND Internal Medicine
DX: I10 Essential (primary) hypertension (principal); N18.4 Chronic kidney disease, stage 4 (severe); E11.9 Type 2 diabetes mellitus without complications; F41.9 Anxiety disorder, unspecified; I50.9 Heart failure, unspecified
CPT/HCPCS: 80053; 82306; 82542; 82607; 83036; 83735; 84443; 85027

== ENCOUNTER 2021-10-12 06:24 | Outpatient (CLI) | payer OTHER | END 2021-10-12 18:58 | disposition home or self-care (01) | LOC: LAB 06:24 | PROVIDERS: ATTEND Internal Medicine | DX: E03.9 Hypothyroidism, unspecified (principal) | CPT/HCPCS: 36415; 84443 ==

== ENCOUNTER 2021-10-14 15:34 | Outpatient (CLI) | payer OTHER | END 2021-10-14 19:57 | disposition home or self-care (01) | LOC: RAD 15:34 | PROVIDERS: ATTEND Internal Medicine | DX: M25.531 Pain in right wrist (principal); Z91.81 History of falling; Z51.89 Encounter for other specified aftercare ==

== ENCOUNTER 2021-10-21 07:14 | Outpatient (CLI) | payer OTHER | END 2021-10-21 20:21 | disposition home or self-care (01) | LOC: LAB 07:14 | PROVIDERS: ATTEND Internal Medicine | DX: E03.8 Other specified hypothyroidism (principal); N18.4 Chronic kidney disease, stage 4 (severe); I50.9 Heart failure, unspecified | CPT/HCPCS: 82306; 82607; 82746; 84443 ==

== ENCOUNTER 2021-11-05 14:31 | Inpatient (IN) | payer OTHER | END 2021-12-03 09:11 | disposition still patient (30) | LOC: PAVC 14:31 | PROVIDERS: ADMIT Internal Medicine; ATTEND Internal Medicine ==

== ENCOUNTER 2021-12-03 13:18 | Inpatient (IN) | payer OTHER | END 2022-01-03 14:15 | disposition still patient (30) | LOC: PAVC 13:18 | PROVIDERS: ADMIT Internal Medicine; ATTEND Internal Medicine ==

== ENCOUNTER 2022-01-03 06:46 | Outpatient (CLI) | payer OTHER | END 2022-01-03 20:42 | disposition home or self-care (01) | LOC: LAB 06:46 | PROVIDERS: ATTEND Internal Medicine | DX: E11.9 Type 2 diabetes mellitus without complications (principal) | CPT/HCPCS: 83036 ==

== ENCOUNTER 2022-01-03 15:41 | Inpatient (IN) | payer OTHER ==
[2022-01-31] MEDS ORDERED: LIPITOR10 MG PO (17:32)
[2022-01-31] MEDS ORDERED: CLARITIN10 M1 PO (17:33)
[2022-01-31] MEDS ORDERED: MIDODRINE10 MG PO (17:44)
[2022-01-31] MEDS ORDERED: RENVELA800 MG PO (17:47)
[2022-01-31] MEDS ORDERED: GLUCOS1 PO (17:50)
[2022-01-31] MEDS ORDERED: HYDROCORTISONE2.5 % EX (17:51)
[2022-01-31] MEDS ORDERED: HYDR5TAB9 PO (17:53)
[2022-01-31] MEDS ORDERED: DOCU100C10 PO (17:55)
[2022-01-31] MEDS ORDERED: RISP0.25 PO (17:55)
[2022-01-31] MEDS ORDERED: EUTHYROX175 MCG PO (17:55)
[2022-01-31] MEDS ORDERED: MOBIC7.5 M1 PO (17:55)
[2022-01-31] MEDS ORDERED: LANTISEPTI2 EX (17:55)
[2022-01-31] MEDS ORDERED: ALBU90AE13 INH (17:55)
[2022-01-31] MEDS ORDERED: CALCIUM/D600 M2 PO (17:59)
[2022-01-31] MEDS ORDERED: VITAMIN D1000 UNI1 PO (22:21)
== END 2022-02-02 10:44 | disposition still patient (30) ==
LOC: PAVC 15:41
PROVIDERS: ADMIT Internal Medicine; ATTEND Internal Medicine

== ENCOUNTER 2022-01-31 11:58 | Inpatient (IN) | payer OTHER ==
[2022-01-31] VITALS (11 sets, daily range): BP systolic 91–132; BP diastolic 31–65; TEMP 97.5–98.4; Ht 172.7 cm; Wt 104.0 kg
[~2022-01-31] VITALS: Ht 172.7 cm; Wt 104.0 kg
[2022-01-31] MEDS ORDERED: LIPITOR10 MG PO (17:32)
[2022-01-31] MEDS ORDERED: CLARITIN10 M1 PO (17:33)
[2022-01-31] MEDS ORDERED: MIDODRINE10 MG PO (17:44)
[2022-01-31] MEDS ORDERED: RENVELA800 MG PO (17:47)
[2022-01-31] MEDS ORDERED: GLUCOS1 PO (17:50)
[2022-01-31] MEDS ORDERED: HYDROCORTISONE2.5 % EX (17:51)
[2022-01-31] MEDS ORDERED: HYDR5TAB9 PO (17:53)
[2022-01-31] MEDS ORDERED: EUTHYROX175 MCG PO (17:55)
[2022-01-31] MEDS ORDERED: MOBIC7.5 M1 PO (17:55)
[2022-01-31] MEDS ORDERED: LANTISEPTI2 EX (17:55)
[2022-01-31] MEDS ORDERED: ALBU90AE13 INH (17:55)
[2022-01-31] MEDS ORDERED: RISP0.25 PO (17:55)
[2022-01-31] MEDS ORDERED: DOCU100C10 PO (17:55)
[2022-01-31] MEDS ORDERED: CALCIUM/D600 M2 PO (17:59)
[2022-01-31] MEDS ORDERED: VITAMIN D1000 UNI1 PO (22:21)
[2022-02-01 00:50] VITALS: BP 111/37; TEMP 98.1
[2022-02-01 01:50] VITALS: BP 111/38; TEMP 97.9
[2022-02-01 03:25] VITALS: BP 133/49; TEMP 97.7
[2022-02-01 04:00] VITALS: BP 122/50; TEMP 97.7
[2022-02-01 05:11] LABS: PLATELET COUNT 92 K/uL (152-353)
[2022-02-01 05:41] LABS: POTASSIUM 4.4 mmol/L (3.6-5.2)
[2022-02-01 08:05] VITALS: BP 112/38; TEMP 97.2
== END 2022-02-01 08:45 | disposition home or self-care (01) | DRG 811 ==
LOC: LAB 11:58 → MED/SURG 14:39
PROVIDERS: ADMIT Family Medicine; ATTEND Family Medicine
PROC: 30233N1 Transfusion of Nonautologous Red Blood Cells into Peripheral Vein, Percutaneous Approach (ICD-10-PCS; principal; 2022-01-31)
DX: D53.9 Nutritional anemia, unspecified (principal); N18.6 End stage renal disease; I12.0 Hypertensive chronic kidney disease with stage 5 chronic kidney disease or end stage renal disease; E11.22 Type 2 diabetes mellitus with diabetic chronic kidney disease; F25.8 Other schizoaffective disorders
CPT/HCPCS: 36415; 80053; 83735; 84100; 85014; 85018; 85027; 86850; 86900; 86901; 86922; P9016

== ENCOUNTER 2022-02-02 03:12 | Inpatient (IN) | payer OTHER ==
[~2022-02-02 03:12] MED LIST changes: +ALBU90AE13 INH; +CALCIUM/D600 M2 PO; +CLARITIN10 M1 PO; +EUTHYROX175 MCG PO; +GLUCOS1 PO; +HYDROCORTISONE2.5 % EX; +LANTISEPTI2 EX; +LIPITOR10 MG PO; +MIDODRINE10 MG PO; +MOBIC7.5 M1 PO; +RENVELA800 MG PO; +RISP0.25 PO; +VITAMIN D1000 UNI1 PO
== END 2022-03-05 10:04 | disposition still patient (30) ==
LOC: PAVC 03:12
PROVIDERS: ADMIT Internal Medicine; ATTEND Internal Medicine

== ENCOUNTER 2022-02-02 06:10 | Outpatient (CLI) | payer OTHER | END 2022-02-02 19:03 | disposition home or self-care (01) | LOC: LAB 06:10 | PROVIDERS: ATTEND Internal Medicine | DX: D64.89 Other specified anemias (principal) | CPT/HCPCS: 85014; 85018 ==

== ENCOUNTER 2022-02-04 05:46 | Outpatient (CLI) | payer OTHER ==
[2022-02-04 06:05] LABS: PLATELET COUNT 86 K/uL (152-353)
== END 2022-02-04 18:55 | disposition home or self-care (01) ==
LOC: LAB 05:46
PROVIDERS: ATTEND Internal Medicine
DX: N18.4 Chronic kidney disease, stage 4 (severe) (principal)
CPT/HCPCS: 36415; 85027

== ENCOUNTER 2022-02-11 05:56 | Outpatient (CLI) | payer OTHER | END 2022-02-11 18:54 | disposition home or self-care (01) | LOC: LAB 05:56 | PROVIDERS: ATTEND Internal Medicine | DX: D64.89 Other specified anemias (principal) | CPT/HCPCS: 85014; 85018 ==

== ENCOUNTER 2022-02-18 05:31 | Outpatient (CLI) | payer OTHER | END 2022-02-18 18:58 | disposition home or self-care (01) | LOC: LAB 05:31 | PROVIDERS: ATTEND Internal Medicine | DX: D64.89 Other specified anemias (principal) | CPT/HCPCS: 85014; 85018 ==

== ENCOUNTER 2022-02-25 06:03 | Outpatient (CLI) | payer OTHER | END 2022-02-25 19:25 | disposition home or self-care (01) | LOC: LAB 06:03 | PROVIDERS: ATTEND Internal Medicine | DX: D64.89 Other specified anemias (principal) | CPT/HCPCS: 85014; 85018 ==

== ENCOUNTER 2022-03-04 06:47 | Outpatient (CLI) | payer OTHER | END 2022-03-04 19:26 | disposition home or self-care (01) | LOC: LAB 06:47 | PROVIDERS: ATTEND Internal Medicine | DX: N18.4 Chronic kidney disease, stage 4 (severe) (principal); D64.89 Other specified anemias | CPT/HCPCS: 85014; 85018 ==

== ENCOUNTER 2022-03-05 17:08 | Inpatient (IN) | payer OTHER | END 2022-04-04 09:20 | disposition still patient (30) | LOC: PAVC 17:08 | PROVIDERS: ADMIT Internal Medicine; ATTEND Internal Medicine ==

== ENCOUNTER 2022-03-11 05:53 | Outpatient (CLI) | payer OTHER | END 2022-03-11 18:48 | disposition home or self-care (01) | LOC: LAB 05:53 | PROVIDERS: ATTEND Internal Medicine | DX: D64.89 Other specified anemias (principal) | CPT/HCPCS: 85014; 85018 ==

== ENCOUNTER 2022-03-18 05:58 | Outpatient (CLI) | payer OTHER | END 2022-03-18 18:55 | disposition home or self-care (01) | LOC: LAB 05:58 | PROVIDERS: ATTEND Internal Medicine | DX: N18.4 Chronic kidney disease, stage 4 (severe) (principal) | CPT/HCPCS: 85014; 85018 ==

== ENCOUNTER 2022-03-25 04:49 | Outpatient (CLI) | payer OTHER | END 2022-03-25 18:53 | disposition home or self-care (01) | LOC: LAB 04:49 | PROVIDERS: ATTEND Internal Medicine | DX: D64.89 Other specified anemias (principal) | CPT/HCPCS: 36415; 85014; 85018 ==

== ENCOUNTER 2022-04-04 13:39 | Inpatient (IN) | payer OTHER | END 2022-05-05 09:25 | disposition still patient (30) | LOC: PAVC 13:39 | PROVIDERS: ADMIT Internal Medicine; ATTEND Internal Medicine ==

== ENCOUNTER 2022-04-07 05:50 | Outpatient (CLI) | payer OTHER ==
[2022-04-07 08:25] LABS: PLATELET COUNT 63 K/uL (152-353)
[2022-04-07 08:44] LABS: POTASSIUM 4.5 mmol/L (3.6-5.2)
== END 2022-04-07 18:50 | disposition home or self-care (01) ==
LOC: LAB 05:50
PROVIDERS: ATTEND Internal Medicine
DX: N18.4 Chronic kidney disease, stage 4 (severe) (principal); R79.89 Other specified abnormal findings of blood chemistry; Z79.899 Other long term (current) drug therapy
CPT/HCPCS: 80053; 82306; 82542; 82607; 83036; 83735; 84443; 85027; 86340

== ENCOUNTER 2022-04-24 05:35 | Outpatient (CLI) | payer OTHER | END 2022-04-24 19:01 | disposition home or self-care (01) | LOC: LAB 05:35 | PROVIDERS: ATTEND Internal Medicine | DX: N18.4 Chronic kidney disease, stage 4 (severe) (principal) | CPT/HCPCS: 85014; 85018 ==

== ENCOUNTER 2022-05-15 13:17 | Outpatient (CLI) | payer OTHER | END 2022-05-15 19:28 | disposition home or self-care (01) | LOC: US 13:17 | PROVIDERS: ATTEND Family Medicine | DX: Z12.31 Encounter for screening mammogram for malignant neoplasm of breast (principal) ==

== ENCOUNTER 2022-05-22 15:59 | Outpatient (CLI) | payer OTHER ==
[2022-05-22 16:56] LABS: PLATELET COUNT 100 K/uL (152-353)
[2022-05-22 17:27] LABS: POTASSIUM 3.7 mmol/L (3.6-5.2)
== END 2022-05-22 22:35 | disposition home or self-care (01) ==
LOC: RAD 15:59 → LABW 15:59 → RAD 22:35
PROVIDERS: ATTEND Family Medicine
DX: R06.02 Shortness of breath (principal)
CPT/HCPCS: 36415; 80053; 83880; 85027

== ENCOUNTER 2022-05-23 11:30 | Emergency (ER) | payer OTHER ==
[~2022-05-23] VITALS: Ht 172.7 cm; Wt 103.9 kg
[2022-05-23 11:30] VITALS: TEMP 98.6
[2022-05-23 12:14] LABS: PLATELET COUNT 114 K/uL (152-353)
[2022-05-23 12:23] LABS: POTASSIUM 3.3 mmol/L (3.6-5.2)
[2022-05-23 15:35] VITALS: BP 131/51
== END 2022-05-23 15:50 | disposition short-term general hospital (02) ==
LOC: ED 11:30
PROVIDERS: Emergency Medicine
DX: J18.9 Pneumonia, unspecified organism (principal); I50.9 Heart failure, unspecified; Z11.52 Encounter for screening for COVID-19
CPT/HCPCS: 36415; 36600; 80053; 82805; 83605; 83880; 85027; 87040; 87635; 93005; 94664; 96365; 99284; J2543; J3370; U0003

== ENCOUNTER 2022-05-25 07:01 | Outpatient (CLI) | payer OTHER | END 2022-05-25 20:58 | disposition home or self-care (01) | LOC: LAB 07:01 | PROVIDERS: ATTEND Family Medicine | DX: N18.4 Chronic kidney disease, stage 4 (severe) (principal) | CPT/HCPCS: 36415; 85014; 85018 ==

== ENCOUNTER 2022-05-27 12:38 | Outpatient (CLI) | payer OTHER | END 2022-05-27 19:02 | disposition home or self-care (01) | LOC: RAD 12:38 | PROVIDERS: ATTEND Family Medicine | DX: Z13.83 Encounter for screening for respiratory disorder NEC (principal) ==